=== PATIENT | female | born 1955 | race Caucasian/White ===

== ENCOUNTER → 2024-06-08 14:40 | Outpatient (REF) | payer MEDICARE, OTHER, SELFPAY | LOC: WDC 14:40 | PROVIDERS: ATTENDING PHYSICIAN Physician Assistant Medical | DX: Z12.31 Encounter for screening mammogram for malignant neoplasm of breast (principal) | CPT/HCPCS: 77063; 77067 ==

== ENCOUNTER → 2025-08-09 10:26 | Outpatient (REF) | payer MEDICARE, OTHER, SELFPAY | LOC: REG 10:26 | PROVIDERS: ATTENDING PHYSICIAN Internal Medicine; FAMILY PHYSICIAN Physician Assistant Medical | DX: K58.9 Irritable bowel syndrome, unspecified (principal) | CPT/HCPCS: 83993; 87045; 87046; 87324; 87427; 87449 ==

== ENCOUNTER → 2025-09-07 16:01 | Outpatient (REF) | payer MEDICARE, OTHER, SELFPAY | LOC: WDC 16:01 | PROVIDERS: ATTENDING PHYSICIAN Physician Assistant Medical | DX: Z12.31 Encounter for screening mammogram for malignant neoplasm of breast (principal) | CPT/HCPCS: 77063; 77067 ==